=== PATIENT | male | born 1965 | race Caucasian/White ===

== ENCOUNTER 2022-06-05 12:40 | Outpatient (CLI) | payer BC, SELFPAY ==
[2022-06-05] MEDS: PERFLUTREN LIPID MICROSPHERES 2 ML VIAL IV (13:32)
[2022-06-05 14:10] VITALS: BP 156/90; PULSE 82
== END 2022-06-05 12:41 | disposition home or self-care (01) ==
PROVIDERS: Visit Provider Family Medicine
DX: R07.89 Other chest pain (principal)
CPT/HCPCS: 93016; 93325; 93351; Q9957

== ENCOUNTER 2023-05-23 09:14 | Outpatient (CLI) | payer BC, SELFPAY | END 2023-05-23 09:15 | disposition home or self-care (01) | PROVIDERS: PCP Orthopaedic Surgery Sports Medicine; Visit Provider Nurse Practitioner Family | DX: Z00.00 Encounter for general adult medical examination without abnormal findings (principal); R03.0 Elevated blood-pressure reading, without diagnosis of hypertension; E66.01 Morbid (severe) obesity due to excess calories; Z12.5 Encounter for screening for malignant neoplasm of prostate; Z13.6 Encounter for screening for cardiovascular disorders | CPT/HCPCS: 80053; 80061; 84153 ==

== ENCOUNTER 2023-10-03 11:45 | Outpatient (CLI) | payer BC, SELFPAY | END 2023-10-03 11:46 | disposition home or self-care (01) | LOC: LKVREF 11:47 | PROVIDERS: PCP Orthopaedic Surgery Sports Medicine; Visit Provider Nurse Practitioner Family | DX: Z01.818 Encounter for other preprocedural examination (principal) | CPT/HCPCS: 80048 ==

== ENCOUNTER 2023-10-07 06:47 | Day surgery (SDC) | payer BC, SELFPAY ==
[2023-10-07] VITALS (12 sets, daily range): BP systolic 101–135; BP diastolic 57–85; PULSE 61–76; RESP 14–62; TEMP 36.1–36.6; O2SAT 92–98; BMI 39.6
[2023-10-07] MEDS: LACTATED RINGERS 1000 ML 1,000 ML 100 ML IV (06:20)
--- NOTE | 2023-10-07 07:06 | W.PM.H&PU ---
History & Physical Update History & Physical Update H&P Reviewed and patient assessed: No changes noted
[2023-10-07] MEDS: SODIUM CHLORIDE 0.9 % (FLUSH) 10 ML SYRINGE IVF (07:30)
[2023-10-07] MEDS: CEFAZOLIN 2 GM in 0.9 % SODIUM CHLORIDE Mini-bag 100 ML IVPB (07:45)
--- NOTE | 2023-10-07 08:19 | P.ORPRC_ITS ---
Procedure Note Date of procedure: 10/07/23 Procedure: PREOPERATIVE DIAGNOSIS: 1. Left knee medial meniscus tear POSTOPERATIVE DIAGNOSIS: 1. Left knee medial meniscus tear 2. 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 Left knee grade 3 chondromalacia patella and medial femoral condyle weight- bearing surface. 4. Osteophyte anterior medial tibial plateau engaging with the femoral notch. PROCEDURE: 1. Left knee arthroscopic partial medial meniscectomy 2. Left knee arthroscopic chondroplasty patellofemoral and medial compartment. 3. Left knee arthroscopic osteophyte excision anterior medial tibial plateau SURGEON: Shayan Robb M.D. PRODUCTION TROUBLESHOOTER: Alexis Marquez PA-C. Of note, an logistics assistant was critical for this case to aid in patient positioning, knee manipulation, instrument exchange, and closure. ANESTHESIA: Spinal EBL: 5 mL TOURNIQUET: 30 min at 300 torr COMPLICATIONS: None evident INDICATIONS: The patient is a pleasant 57-year-old male who has experienced left knee pain particularly with any twisting or turning. Physical exam was concerning for medial meniscus tear, this was confirmed on MRI. Additionally, attempted nonoperative management has been tried, and failed. Thus, surgery was recommended. FINDINGS: Grade 4 chondromalacia trochlear groove centrally in region of 10 mm in diameter. Surrounded by grade 3 chondromalacia. The patella also shows grade 2-3 chondromalacia throughout the median ridge and lateral facet. There is also grade 3 chondromalacia weight-bearing surface medial femoral condyle. Complex tearing posterior horn medial meniscus extending to the posterior root and to the midbody. Lateral meniscus intact. ACL and PCL intact. Large spur over the anterior medial portion of the tibial plateau engaging with the femoral notch DESCRIPTION OF PROCEDURE: After a thorough discussion of risks, benefits, and alternatives, the patient was brought to the operating room and placed upon the operating table. Induction of anesthesia was undertaken as previously noted. 3 g IV Ancef was administered within 1 hr of incision preoperatively. Appropriate time-out was performed identifying proper patient, site, and procedure. The left lower extremity was prepped and draped in the appropriate sterile fashion using ChloraPrep. The limb was exsanguinated and tourniquet inflated. Anterolateral and anteromedial portals were established with an 11 blade, and a diagnostic arthroscopy was performed. This identified the findings as noted above. Following the diagnostic arthroscopy, a partial medial menisectomy was performed with the combination of basket forceps and a motorized shaver. Following this, the meniscus was re-probed and found to be stable. Approximately 33-40 % of the overall meniscus required resection. The torpedo shaver was also utilized for chondroplasty of the loose chondral flaps in the trochlear groove and the medial femoral condyle. In addition, osteophyte of the anteromedial tibial plateau was resected with pituitary rongeur and torpedo shaver. At this stage, the shaver was reinserted into the suprapatellar pouch and all remaining meniscal debris was evacuated. Instruments were removed, excess fluid was drained, and closure performed with 4-0 Monocryl with Steri-Strips. Dressings were applied, the tourniquet deflated, and the patient was awoken from anesthesia and transferred to the PACU in stable condition. PLAN: 1. Weightbear as tolerated operative extremity. Crutch / walker ambulation assistance PRN. Straight leg raise to be initiated starting tomorrow by the patient. 2. Ice, acetominophen and/or ibuprofen, and oxycodone for pain as needed. 3. Knee range of motion and quad sets/straight leg raise regularly 4. Follow up with PA visit in 7-10 days. for a wound check. Initiate physical therapy at that time
[2023-10-07] MEDS: ROPIVACAINE 0.5% 30 ML 150 MG INJECTION (08:21)
--- NOTE | 2023-10-07 08:33 | W.ANESCHARGE ---
Anesthesia Charges Start Date/Time Anesthesia Start Date: 10/07/23 Anesthesia Start Time: 07:33 Stop Date/Time Anesthesia Stop Date: 10/07/23 Anesthesia Stop Time: 08:34
--- NOTE | 2023-10-07 09:09 | SUR.PHASEI ---
patient met discharge criteria per anesthesia
== END 2023-10-07 10:00 | disposition home or self-care (01) ==
PROVIDERS: PCP Nurse Practitioner Family; Visit Provider Orthopaedic Surgery Sports Medicine
PROC: (CPT 29870; principal; 2023-10-07 07:45)
DX: S83.232A Complex tear of medial meniscus, current injury, left knee, initial encounter (principal); M22.42 Chondromalacia patellae, left knee; M25.762 Osteophyte, left knee
CPT/HCPCS: 29881; 29877; 01400; J0690; J1100; J1885; J2250; J2405; J2704; J2795; J3010; J7120

== ENCOUNTER 2024-10-17 17:18 | Emergency (ER) | payer BC, SELFPAY ==
--- OUTSIDE RECORDS SUMMARY | 2024-10-17 17:20 | XMS_ITS | Clinical Summary ---
Author Organization Price Address [address] [place] [address]. [place] [address] Care Team Providers Care Package Sealer Name Role Phone Unavailable Primary Care Provider Unavailabl e Allergies Active Allergy Reactions Criticality Noted Date Comments No Known Allergies 03/26/2002 Medications NO ACTIVE MEDICATIONSIndicat ions:Paronychia of finger . 0 0 12/31/2008 Active Active Problems Problem Noted Date Diagnosed Date HTN (hypertension) 09/25/2013 CARDIOVASCULAR SCREENING; LDL GOAL LESS THAN 160 07/02/2010 Pure hyperglyceridemia 12/09/2002 Headache 11/11/2002 Overview (06/02/2015): Problem list name updated by automated process. Provider to review Degeneration of intervertebral disc, site unspec ified Overview (12/31/2008): L5 Immunizations Name Administration Dates Next Due TD,PF 7+ (Tenivac) 06/11/2000 TDAP (Adacel,Boostrix) 08/06/2020,09/02/2009 Family History Medical History Relation Comments Diabetes Brother 2 Hypertension Brother 3 Cancer Father lung Diabetes Maternal Grandmother Cancer Mother lung, recurrent C.A.D. Other Cousin at 45 Hypertension Sister 5 Hypertension Sister 6 C.A.D. Sister 7 Relation Status Comments Brother 1 Alive Brother 2 Brother 3 Father Maternal Grandmother Mother Other Sister 1 (Age 52) CAD Sister 2 Alive Sister 3 Alive Sister 4 Alive Sister 5 Sister 6 Sister 7 Social History Tobacco Use Types Packs/Day Years Used Date Smoking Tobacco: Never Smokeless Tobacco: Never Alcohol Use Standard Drinks/Week Comments Yes 0 (1 standard drink = 0.6 oz pur e alcohol) social Adolescent Education Answer Date Record ed Getting School Help Needed Not on file 06/08 Sex and Gender Information Value Date Recorded Sex Assigned at Not on file Legal Sex Male 3:40 AM COPY PREPARER Gender Identity Not on file Sexual Orientation Not on file Last Filed Vital Signs Vital Sign Reading Time Taken Comments Blood Pressure 130/90 08/06/2020 3:31 PM COPY PREPARER Pulse 76 08/06/2020 3:31 PM COPY PREPARER Temperature 36.4 C (97.6 F) 08/06/2020 3:31 PM COPY PREPARER Respiratory Rate - - Oxygen Saturation 96% 08/06/2020 3:31 PM COPY PREPARER Inhaled Oxygen Concentration - - Weight 131.5 kg (290 lb) 08/06/2020 3:31 PM COPY PREPARER Height 181.6 cm (5' 11.5) 09/25/2013 3:34 PM CS T Body Mass Index 39.88 09/25/2013 3:34 PM COPY PREPARER Plan of Treatment Not on file Insurance [facility]
--- OUTSIDE RECORDS SUMMARY | 2024-10-17 17:20 | XMS_ITS | Clinical Summary ---
Author Organization [facility] Address [place], [place] [address] Care Team Providers Care Wireless Sales Manager Name Role Phone Pcp, No Primary Care Provider Unavailabl e Allergies No known active allergies Medications Blood Pressure MonitorIndication s:Elevated blood pressure reading without diagnosis of hypertension Check BP at varying times once daily. 1 Device 8 Active sildenafil citrate (VIAGRA) 100 mg tabletIndications :Erectile dysfunction, unspecified erectile dysfunction type Take 0.5-1 tablets by mouth once daily if needed for Erectile Dysfunction. Take 30min to 4 hours before sexual activity. Max 100mg/24hr. 10 tablet 11 9 Active Uusxu-7-PCO-EPA-F andrés Oil 1,000 mg (120 mg-180 mg) cap Take 2 capsules by mouth 2 times daily. 0 9 Active cholecalciferol, Vitamin D3, (VITAMIN D-3) 5,000 unit tab tablet Take 1 tablet by mouth once daily. 0 9 Active Active Problems Problem Noted Date Diagnosed Date Degeneration of intervertebral disc, site unspec ified 04/11/2022 Overview (04/11/2022): L5 Mild-moderate arthritis of left glenohumeral deion nt 08/31/2018 Scapular dyskinesis 08/31/2018 Chronic left shoulder pain 08/31/2018 HTN (hypertension) 09/25/2013 Encounter for screening for cardiovascular disor ders 07/02/2010 Pure hyperglyceridemia 12/09/2002 Headache 11/11/2002 Overview (04/11/2022): Problem list name updated by automated process. Provider to review Immunizations Name Administration Dates Next Due DT (Age < 7 years) 01/21/1991 Influenza Virus, Unspecified 07/04/2015 Influenza, IIV4 08/11/2020,06/29/2019 Influenza, IIV4 (=>6mos) MDV 09/10/2018 Td (Age >=7 Years) 06/11/2000 Tdap 08/06/2020,07/04/2015,09/02/2009 Social History Tobacco Use Types Packs/Day Years Used Date Smoking Tobacco: Never Smokeless Tobacco: Never Alcohol Use Standard Drinks/Week Comments Yes 0 (1 standard drink = 0.6 oz pur e alcohol) occasional PHQ-2 Answer Date Recorded PHQ-2 TOTAL SCORE 0 02/21/2021 Social Connections Answer Date Recorded Frequency of Communication with Friends and Fami ly Not on file 09/02/2021 Financial Resource Strain Answer Date R ecorded Difficulty of Paying Living Expenses Not on file 09/02/2021 Difficulty of Paying Living Expenses Not on file 09/02/2021 Sex and Gender Information Value Date Recorded Sex Assigned at Not on file Legal Sex Male 4:14 PM CDT Gender Identity Not on file Sexual Orientation Not on file Obstetrics History Last Filed Vital Signs Vital Sign Reading Time Taken Comments Blood Pressure 142/87 04/11/2022 8:04 AM CDT Pulse 72 04/11/2022 8:04 AM CDT Temperature 36.3 C (97.4 F) 04/11/2022 8:04 AM CDT Respiratory Rate 16 04/11/2022 8:04 AM CDT Oxygen Saturation 98% 04/11/2022 8:04 AM CDT Inhaled Oxygen Concentration - - Weight 122.5 kg (270 lb) 04/11/2022 8:04 AM CDT Height 180.3 cm (5' 11) 04/11/2022 8:04 AM CDT Body Mass Index 37.66 04/11/2022 8:04 AM CDT Plan of Treatment Health Maintenance Due Date Last Done Comments HIV for age 15-65 1980 Hepatitis C screening for ag e 18-79 12/08/1983 Pneumococcal series for age 50+ (1 of 1 - PCV) 12/08/2015 Zoster (shingles) series for age 50+ (1 of 2) 12/08/2015 Depression screening for age 12+ 02/21/2022 02/21/2021, 09/11/2018, 09/10/2018, Additional history exists BMI (ht and wt on same day) for age 18+ 04/11/2023 04/11/2022, 01/19/2022, 02/21/2021, Additional history exists COVID-19 vaccine series ( season) 2024 05/15/2021 Influenza for age 50-64 05/03/2024 08/11/20 20, 06/29/2019, 09/10/2018, Additional history exists Lipids for age 45-75 05/12/2024 05/12/2019, 09/10/2018, 04/30/2018 Colonoscopy through age 75 03/15/202703/15, 03/15/2017, 03/15/2017 (Completed outside of [facility]) Tetanus booster 08/06/2030 08/06/2020, 10/2014, 09/02/2009, Additional history exists Tdap Completed 08/06/2020, 10/2014, 09/02/2009 Procedures Procedure Name Priority Date/Time Associated Diagnosis Comments LIPID PANEL W REFLEX MEASURED LDL Routine 05/12/2019 1:20 PM CDT Screening for hyperlipidemia SCAN-COLONOSCOPY 03/15/2017 12:0 0 AM CDT from Last 3 Months or Most Recently Relevant to Health Maintenance Results * (ABNORMAL) LIPID PANEL W REFLEX MEASURED LDL (05/12/2019 1:20 PM CDT) CHOLESTEROL,TOTAL 165 100 - 199 mg/dL 05/12/2019 10:56 PM CDT [facility] [place] TRIGLYCERIDES 150(H) <150 mg/dL 05/12/2019 10:56 PM CDT [facility] HDL CHOLESTEROL 28(L) >40 mg/dL 9 10:56 PM CDT [facility] NON-HDL CHOLESTEROL 137 <145 mg/dl 05/12/2019 10:56 PM CDT [facility] CHOL/HDL RATIO 5.89(H) <4.50 05/12/2019 10:56 PM CDT [facility] LDL CHOLESTEROL 107 <=130 mg/dL 05/12/2019 10:56 PM CDT [facility] PROVIDER ORDERED STATUS RANDOM 05/12/2019 10:56 PM CDT [facility] Blood BLOOD SPECIMEN / Unknown Venipuncture / Unknown 05/12/2019 1:20 PM CDT 05/12/2019 1:21 PM CDT us Judy Mathew NP CHEMISTRY Final R esult [facility] [address] [place] [address], [place] * SCAN-COLONOSCOPY (03/15/2017 12:00 AM CDT) us Scanner OTHER Final Result from Last 3 Months or Most Recently Relevant to Health Maintenance Insurance [facility] [facility] [place] JAYDA MELENDEZ [id number] Care Teams Wireless Sales Manager Relationship Specialty Start Date End Date Pcp, No . PCP - General 04/24/18
[2024-10-17 17:21] VITALS: BP 157/88; PULSE 93; RESP 18; TEMP 36.5; O2SAT 98; BMI 41.4
--- OUTSIDE RECORDS SUMMARY | 2024-10-17 17:42 | XMS_ITS | Clinical Summary ---
Author Organization [facility] Address [address] [place] [address]. [place] [address] Care Team Providers Care Basket Grader Name Role Phone Unavailable Primary Care Provider [...] on file Legal Sex Male 3:40 AM SUPERVISOR GROVE Gender Identity Not on file Sexual Orientation Not on file Last Filed Vital Signs Vital Sign Reading Time Taken Comments Blood Pressure 130/90 08/06/2020 3:31 PM SUPERVISOR GROVE Pulse 76 08/06/2020 3:31 PM SUPERVISOR GROVE Temperature 36.4 C (97.6 F) 08/06/2020 3:31 PM SUPERVISOR GROVE Respiratory Rate - - Oxygen Saturation 96% 08/06/2020 3:31 PM SUPERVISOR GROVE Inhaled Oxygen Concentration - - Weight 131.5 kg (290 lb) 08/06/2020 3:31 PM SUPERVISOR GROVE Height 181.6 cm (5' 11.5) 09/25/2013 3:34 PM CS T Body Mass Index 39.88 09/25/2013 3:34 PM SUPERVISOR GROVE Plan of Treatment Not on file Insurance [facility]
--- OUTSIDE RECORDS SUMMARY | 2024-10-17 17:42 | XMS_ITS | Clinical Summary ---
Author Organization [facility] Address [place], [place] [address] Care Team Providers Care Lab Instructor Name Role Phone Pcp, No Primary Care [...] Max 100mg/24hr. 10 tablet 11 9 Active Nwryh-8-SWW-EPA-F andrés Oil 1,000 mg (120 mg-180 mg) [...] 75 03/15/202703/15, 03/15/2017, 03/15/2017 (Completed outside of [facility]) Tetanus booster 08/06/2030 08/06/2020, 10/2014, 09/02/2009, [...] - 199 mg/dL 05/12/2019 10:56 PM CDT [facility] TRAL LABORATORY TRIGLYCERIDES 150(H) <150 mg/dL 05/12/2019 10:56 PM CDT [facility] TR[facility]ORY HDL CHOLESTEROL 28(L) >40 mg/dL 9 10:56 PM CDT [facility] LAB[facility] NON-HDL CHOLESTEROL 137 <145 mg/dl 05/12/2019 10:56 PM CDT [facility] CHOL/HDL RATIO 5.89(H) <4.50 05/12/2019 10:56 PM CDT [facility] LDL CHOLESTEROL 107 <=130 mg/dL 05/12/2019 10:56 PM CDT [facility] PROVIDER ORDERED STATUS RANDOM 05/12/2019 10:56 PM CDT [facility] Blood BLOOD SPECIMEN / Unknown Venipuncture / Unknown 05/12/2019 1:20 PM CDT 05/12/2019 1:21 PM CDT us Jduy Mathew NP CHEMISTRY Final R esult [facility] [address] [place] [address], [place] * SCAN-COLONOSCOPY (03/15/2017 12:00 AM CDT) us Scanner OTHER Final Result from Last 3 Months or Most Recently Relevant to Health Maintenance Insurance [facility] [facility] [place] JAYDA MELENDEZ [id number] Care Teams Lab Instructor Relationship Specialty Start Date End Date Pcp, No . PCP - General 04/24/18
--- NOTE | 2024-10-17 17:44 | ED.UPPEXIN ---
HPI - Extremity Injury (Upper) General Date Seen: 10/17/24 Chief Complaint: Extremity Pain/Injury, Upper Stated Complaint: left elbow red swealing, feels hot Time Seen by Provider: 10/17/24 17:19 Source: patient and family Mode of arrival: ambulatory Limitations: no limitations History of Present Illness HPI narrative: Patient is a 50-year-old gentleman who presents here with left elbow swelling he has had for the last 6 hours or so, he got out of having an Epson salts baths this morning, and put weight on his left elbow, and thinks this may have triggered him to developed the swelling. Does remember any history of other injury associated with this, denies any fevers chills but has been a little bit nauseous today. No history of previous infectious etiology, is a nondiabetic, no treatments for immunosuppressive diseases. MD complaint: injury to: left and elbow Onset (ago): hour(s) Other injuries: none Hand dominance: Right Place: home Severity: moderate Relieving factors: none and immobilization Exacerbating factors: movement of extremity Context: direct blow Associated symptoms: denies other symptoms Related Data Home Medications ?Medication ?Instructions ?Recorded ?Confirmed coenzyme Q10 10 mg capsule (Co 10 mg PO ONCE 11/21/23 10/17/24 Q-10) fish, borage, flaxseed oils-omega 1 cap PO DAILY 11/21/23 10/17/24 3,6,9 comb no.1 1,200 mg capsule (Craig 3-6-9) Allergies Allergy/AdvReac Type Severity Reaction Status Date / Time No Known Drug Allergies Allergy Verified 10/17/24 17:26 Review of Systems Status of ROS: Reports: 10 or more systems reviewed and unremarkable except as noted in History and below [facility] Surgical History History of tonsillectomy ?Z90.89 - Acquired absence of other organs (ICD-10) H/O arthroscopy of left knee (10/07/23) ?Z98.890 - Other specified postprocedural states (ICD-10) Status post shoulder surgery ?Z98.890 - Other specified postprocedural states (ICD-10) History of colonoscopy ?Z98.890 - Other specified postprocedural states (ICD-10) S/P right knee arthroscopy (09/05/17) ?Z98.890 - Other specified postprocedural states (ICD-10) Family History Father Lung cancer Social History Smoking Status: Never smoker How often do you have a drink containing alcohol: monthly or less How many standard drinks containing alcohol do you have on a typical day: 3 or 4 AUDIT-C Alcohol total score: 2 Non-prescribed substance use: denies use Caffeine: Yes Exam Narrative: Exam Narrative: On examination patient is no apparent distress, he clearly has a bursitis involving his left elbow, it feels a little bit warm, but is not hot, his range of motion is excellent he can come from +5 although weight 110?, no pain with movement supination pronation are normal, distal pulses are normal, no evidence of any sort of other skin lesion noted. Const: Vital Signs, click to edit/add: Vital Signs - 24 hr 10/17/24 17:21 Temperature 97.7 F Pulse Rate [Pulse Oximeter] 93 Respiratory Rate 18 Blood Pressure [Ri ght Upper Arm] 157/88 H Pulse Oximetry 98 Oxygen Delivery Me thod Room Air Documenting provider has reviewed patient's vital signs: yes Course Course ED Course: Discussed with the patient that his T the x-ray is negative, he does have a osteophyte coming not have his olecranon, that is possibly is irritated here. Given the fact there is not a lot of warmth, his range of motion is so good, I do think he still needs to be treated with Bactrim and Keflex, and and says wears a sling, this should slowly resolve over the next few days, ice would be beneficial along with ibuprofen worsening signs and symptoms she should come back and be seen. Vital Signs Vital signs: Initial Vital Signs Temperature 97.7 F 10/17/24 17:21 Temperature Source Temporal Artery Scan 10/17/24 17:21 Pulse Rate 93 10/17/24 17:21 Respiratory Rate 18 10/17/24 17:21 Blood Pressure 157/88 H 10/17/24 17:21 Blood Pressure Mean 111 H 10/17/24 17:21 Blood Pressure Position Sitting 10/17/24 17:21 Pulse Oximetry 98 10/17/24 17:21 Oxygen Delivery Method Room Air 10/17/24 17:21 Vital Signs Temperature 97.7 F 10/17/24 17:21 Pulse Rate 93 10/17/24 17:21 Respiratory Rate 18 10/17/24 17:21 Blood Pressure 157/88 H 10/17/24 17:21 Pulse Oximetry 98 10/17/24 17:21 Oxygen Delivery Method Room Air 10/17/24 17:21 Temperature 97.7 F 10/17/24 17:21 Pulse Rate 93 10/17/24 17:21 Respiratory Rate 18 10/17/24 17:21 Blood Pressure 157/88 H 10/17/24 17:21 Pulse Oximetry 98 10/17/24 17:21 Oxygen Delivery Method Room Air 10/17/24 17:21 MDM - Extremity Injury (Upper) MDM Narrative Medical decision making narrative: I discussed with him that this seems like this is a bursitis more of a traumatic type than a septic. We will do an x-ray to see how his elbow joint looks, and then likely put him on a combination of Bactrim and Keflex, Medical Records Attestation: I reviewed the patient's medical records. Imaging Data Elbow x-ray: Attestation: I have reviewed the pertinent imaging results. My impression: No evidence of fracture, large osteophyte come in off the olecranon. Discharge Plan Discharge Clinical Impression: Bursitis of left elbow Patient Disposition: Home w/ Parent or Adult Condition: Stable Instructions: Elbow Bursitis (ED) Additional Instructions: Home rest sling for the next 7 days, antibiotics, ibuprofen 600 mg 3 times a day, return back here if increasing redness swelling fevers chills or other issues. Ice is also helpful. Activity Level: Light activity Prescriptions: No Action coenzyme Q10 [Co Q-10] 10 mg capsule 10 mg PO ONCE Craig 3-6-9 1,200 mg capsule 1 cap PO DAILY Follow Up/Referrals: Elsa Orellana CNP [Primary Care Provider] - Stand Alone Forms: MyHealth Info Instructions
== END 2024-10-17 18:38 | disposition home or self-care (01) ==
PROVIDERS: Emergency Provider Family Medicine; PCP Nurse Practitioner Family
DX: M70.32 Other bursitis of elbow, left elbow (principal)
CPT/HCPCS: 73080; 99283

== ENCOUNTER 2025-06-09 08:47 | Outpatient (CLI) | payer BC, SELFPAY | END 2025-06-09 08:48 | disposition home or self-care (01) | LOC: NFLDREF 06-11 16:00 | PROVIDERS: PCP Nurse Practitioner Family; Referring Provider Nurse Practitioner Family; Visit Provider Family Medicine | DX: Z00.00 Encounter for general adult medical examination without abnormal findings (principal); Z13.6 Encounter for screening for cardiovascular disorders; Z12.5 Encounter for screening for malignant neoplasm of prostate | CPT/HCPCS: 80053; 80061; G0103 ==